=== PATIENT | male | born 1985 ===

== ENCOUNTER 2017-09-17 02:29 | Emergency (ER) | payer SELFPAY ==
--- NOTE | 2017-09-17 04:28 | ED PDOC ---
HPI: Psych/Substance Abuse Time Seen by Provider: 09/17/17 02:37 Chief Complaint (Nursing): Alcohol Ingestion Chief Complaint (Provider): Alcohol Ingestion ED Caveat: Intoxicated History Per: Patient History/Exam Limitations: intoxication Additional Complaint(s): 31 years old male brought to the ED for evaluation of public intoxication. Patient admits alcohol use. He offers no medical complaints. PMD: non provided Past Medical History Reviewed: Historical Data, Nursing Documentation, Vital Signs Vital Signs: Last Vital Signs Temp 97.8 F 09/17/17 02:34 Pulse 68 09/17/17 02:34 Resp 18 09/17/17 02:34 BP 138/87 09/17/17 02:34 Pulse Ox 97 09/17/17 02:34 - Medical History PMH: No Chronic Diseases - Family History Family History: States: Unknown Family Hx - Social History Alcohol: Social - Allergies Allergies/Adverse Reactions: Allergies Allergy/AdvReac Type Severity Reaction Status Date / Time No Known Allergies Allergy Verified 09/17/17 02:34 Review of Systems Review Of Systems: ROS cannot be obtained secondary to pt's inabilty to answer questions. Physical Exam - Reviewed Nursing Documentation Reviewed: Yes Vital Signs Reviewed: Yes - Physical Exam Appears: Positive for: No Acute Distress Head Exam: Positive for: ATRAUMATIC, NORMOCEPHALIC Skin: Positive for: Normal Color, Warm, Dry Eye Exam: Positive for: Normal appearance Neurologic/Psych: Positive for: Alert, Gait (steady), Other (Slurred speech) - ECG O2 Sat by Pulse Oximetry: 97 (RA) Pulse Ox Interpretation: Normal Medical Decision Making Medical Decision Making: Time: 257 Initial Impression: 31 years old intoxicated male. Initial Plan: --Alcohol Serum --Glucose Time: 641 Patient is sober, alert, awake, oriented x 3 and stable for discharge. Scribe Attestation: Documented by Rubi Cui, acting as a scribe for Isac Bates MD. Provider Scribe Attestation: All medical record entries made by the Scribe were at my direction and personally dictated by me. I have reviewed the chart and agree that the record accurately reflects my personal performance of the history, physical exam, medical decision making, and the department course for this patient. I have also personally directed, reviewed, and agree with the discharge instructions and disposition. Disposition - Clinical Impression Clinical Impression: Alcohol use - Disposition Disposition: Routine/Home Disposition Time: 06:42 Condition: STABLE Instructions: Alcohol Use - When Is Drinking a Problem? Forms: [facility] ([place])
[2017-09-17 06:55] VITALS: BP 129/72; PULSE 64; RESP 18; TEMP 97.9; O2SAT 98
== END 2017-09-17 06:50 | disposition home or self-care (01) ==
LOC: H.ER 02:29
DX: F10.10 Alcohol abuse, uncomplicated (principal)
CPT/HCPCS: 82948; 99285; G0480